=== PATIENT | female | born 1980 | race Caucasian/White ===

== ENCOUNTER 2020-08-26 10:28 | Observation (INO) | payer MEDICAID ==
[~2020-08-26] VITALS: Ht 160 cm; Wt 95.3 kg
== END 2020-08-26 13:20 | disposition home or self-care (01) ==
LOC: SPU 10:28
PROVIDERS: ADMIT Obstetrics & Gynecology; ATTEND Obstetrics & Gynecology
DX: O36.8130 Decreased fetal movements, third trimester, not applicable or unspecified (principal); O62.9 Abnormality of forces of labor, unspecified; Z3A.34 34 weeks gestation of pregnancy
CPT/HCPCS: 76819; G0378

== ENCOUNTER 2020-10-08 07:15 | Inpatient (IN) | payer MEDICAID, SELFPAY ==
[~2020-10-08] VITALS: Ht 162.6 cm; Wt 100.2 kg
[2020-10-08] MEDS ORDERED: NALOXONE HCL 0.4 MG/ML AMP (NARCAN) IVP PRN (07:45)
[2020-10-08] MEDS ORDERED: TERBUTALINE SULFATE 1 MG/ML VIAL SUBCUT ONE (07:45)
[2020-10-08] MEDS ORDERED: ONDANSETRON HCL 4 MG/2 ML VIAL IVP PRN (07:45)
[2020-10-08] MEDS ORDERED: OXYTOCIN/0.9 % SODIUM CHLORIDE 1,000 ML IV SCH ×2 (07:45→10:00)
[2020-10-08] MEDS ORDERED: MORPHINE SULFATE 10 MG/ML VIAL IVP ONE (07:45)
[2020-10-08] MEDS ORDERED: LR 1,000 ML IV ONE (07:45)
[2020-10-08] MEDS ORDERED: LR 1,000 ML IV SCH (07:45)
[2020-10-08 08:18] LABS: BASOPHILS # (AUTO) 0.1 K/uL (0.0-0.2); BASOPHILS % (AUTO) 0.8 % (0.0-2.0); EOSINOPHILS % (AUTO) 0.5 % (0.0-4.0); HEMATOCRIT 38.2 % (36-48); LYMPHOCYTES # (AUTO) 1.8 K/uL (1.0-5.5); LYMPHOCYTES % (AUTO) 22.4 % (20.5-51.5); MEAN CORPUSCULAR HEMOGLOBIN 33 pg (27-31); MEAN CORPUSCULAR HGB CONC 34 % (32-36); MEAN CORPUSCULAR VOLUME 97 fL (79.0-98.0); MONOCYTES # (AUTO) 0.4 K/uL (0.0-1.0); MONOCYTES % (AUTO) 4.8 % (1.7-9.3); NEUTROPHILS # (AUTO) 5.7 K/uL (1.8-7.7); NEUTROPHILS % (AUTO) 71.5 % (40.0-70.0); PLATELET COUNT (AUTO) 139 K/uL (130-430); RED BLOOD CELL COUNT(AUTO) 3.93 MIL/uL (4.2-6.2); RED CELL DISTRIBUTION WIDTH 13.8 % (9.0-15.0)
[2020-10-08 09:33] VITALS: BP_SYST 124
[2020-10-08] MEDS ORDERED: RHO(D) IMMUNE GLOBULIN/MALTOSE 1500 UNITS/1.3 ML (WINHRO) IM PRN (10:00)
[2020-10-08] MEDS ORDERED: WITCH HAZEL LEAF 1 MED.PAD MED.PAD TP PRN (10:00)
[2020-10-08] MEDS ORDERED: ANUSOL 1 EA SUPP.RECT (PREPARATION H) RC PRN (10:00)
[2020-10-08] MEDS ORDERED: LANOLIN 7 GM OINT. TP PRN (10:00)
[2020-10-08] MEDS ORDERED: MEASLES,MUMPS&RUBELLA VACC/PF 12500 UNIT/0.5 ML VIAL SUBQ PRN (10:00)
[2020-10-08] MEDS ORDERED: SENNOSIDES/DOCUSATE SODIUM 1 TAB TABLET(SENOKOT-S) PO PRN (10:00)
[2020-10-08] MEDS ORDERED: DERMOPLAST SPRAY TP PRN (10:00)
[2020-10-08] MEDS ORDERED: DIPH-TET-PERTUS Vaccine 0.5 ML VIAL (ADACEL) I.M. PRN (10:00)
[2020-10-08] MEDS ORDERED: TEMAZEPAM 15 MG CAPSULE PO PRN (10:00)
[2020-10-08] MEDS ORDERED: HYDROCORTISONE 0.5%, 28.35 GM TOPICAL CREAM TP PRN (10:00)
[2020-10-08] MEDS: IBUPROFEN 600 MG TABLET PO SCH ×2 (12:28→17:42)
[2020-10-08] MEDS ORDERED: MINERAL OIL 30 ML UDC PO ONE (14:25)
[2020-10-08] MEDS ORDERED: HYDROcodone/ACETAMIN 5-325 MG TAB (NORCO/ VICODIN) PO PRN (21:15)
[2020-10-08] MEDS: HYDROcodone/ACETAMIN 5-325 MG TAB (NORCO/ VICODIN) PO PRN (21:48)
[2020-10-08] MEDS: DOCUSATE SODIUM 100 MG CAPSULE PO PRN (21:49)
[2020-10-09] MEDS: IBUPROFEN 600 MG TABLET PO SCH ×4 (00:14→17:59)
[2020-10-09] MEDS: HYDROcodone/ACETAMIN 5-325 MG TAB (NORCO/ VICODIN) PO PRN ×3 (03:53→22:45)
[2020-10-09 07:27] LABS: HEMATOCRIT 34.9 % (36-48); HEMOGLOBIN 11.9 g/dL (12.0-16.0)
[2020-10-09] MEDS: DOCUSATE SODIUM 100 MG CAPSULE PO PRN (21:08)
[2020-10-10] MEDS: IBUPROFEN 600 MG TABLET PO SCH ×2 (00:09→06:10)
[2020-10-10] MEDS: HYDROcodone/ACETAMIN 5-325 MG TAB (NORCO/ VICODIN) PO PRN (04:46)
[2020-10-11 19:23] LABS: FTA-Ab (T PALLIDUM) Non Reactive (Non Reactive)
== END 2020-10-10 07:00 | disposition home or self-care (01) | DRG 560 ==
LOC: SPU 07:15
PROVIDERS: ADMIT Obstetrics & Gynecology; ATTEND Obstetrics & Gynecology
PROC: 10E0XZZ Delivery of Products of Conception, External Approach (ICD-10-PCS; principal; 2020-10-08)
DX: O80 Encounter for full-term uncomplicated delivery (principal); Z3A.40 40 weeks gestation of pregnancy; Z37.0 Single live birth; Z20.828 Contact with and (suspected) exposure to other viral communicable diseases
CPT/HCPCS: 36415; 81002-TC; 82962; 85018-TC; 85025; 86592; 86780; 86886; 86900; 86901